=== PATIENT | female | born 1990 | race Two or more races ===

== ENCOUNTER 2019-07-11 09:42 | Inpatient (IN) | payer OTHER ==
[~2019-07-11] VITALS: Ht 162.6 cm; Wt 72.6 kg
[2019-07-11] MEDS ORDERED: PRENATAL CAPLE1 EAC1 PO (10:17)
[2019-07-13] MEDS ORDERED: COLACE100 MG PO (13:14)
[2019-07-13] MEDS ORDERED: SIMETHICONE125 M1 PO (13:15)
== END 2019-07-13 13:14 | disposition home or self-care (01) | DRG 807 ==
LOC: LDR 09:42 → SURG-SUITE 14:38
PROVIDERS: ADMIT Specialist; ATTEND Specialist
PROC: 10E0XZZ Delivery of Products of Conception, External Approach (ICD-10-PCS; principal; 2019-07-11)
PROC: 0W8NXZZ Division of Female Perineum, External Approach (ICD-10-PCS; 2019-07-11)
PROC: 4A1HXCZ Monitoring of Products of Conception, Cardiac Rate, External Approach (ICD-10-PCS; 2019-07-11)
DX: O80 Encounter for full-term uncomplicated delivery (principal); Z37.0 Single live birth; Z3A.38 38 weeks gestation of pregnancy

== ENCOUNTER 2023-08-17 12:45 | Inpatient (IN) | payer OTHER ==
[~2023-08-17] VITALS: Ht 162.6 cm; Wt 73.0 kg
[~2023-08-17 12:45] MED LIST: COLACE100 MG PO; PRENATAL CAPLE1 EAC1 PO; SIMETHICONE125 M1 PO
[2023-08-27 08:36] LABS: HEMATOCRIT 38.3 % (36.0-45.00); HEMOGLOBIN 13.1 g/dL (12.0-15.00); MEAN CELL VOLUME 89.2 fL (80.00-100.00); MEAN CORPUSCULAR HEMOGLOBIN 30.4 pg (27.00-32.0); MEAN CORPUSCULAR HGB CONC 34.1 g/dl (32.0-36.0); PLATELET COUNT 174 K/uL (150-450); RED CELL DISTRIBUTION WIDTH 19.4 % (11.5-14.5)
[2023-08-27 08:57] LABS: INR < 0.93; PARTIAL THROMBOPLASTIN TIME 27.9 SECONDS (22.0-34.0); PROTHROMBIN TIME 9.5 SECONDS (9.0-11.5)
[2023-08-27 09:04] LABS: URINE APPEARANCE Clear; URINE BILIRRUBIN Negative (NEGATIVE); URINE BLOOD Negative; URINE COLOR Yellow; URINE GLUCOSE Negative (NEGATIVE); URINE LEUKOCYTE Negative; URINE NITRATE Negative; URINE PROTEIN Trace (NEGATIVE)
[2023-08-27 09:07] LABS: URINE BACTERIA 581.9 uL (0.0-1933); URINE WBC 4.6 uL (0.0-23.2)
[2023-08-27 09:11] LABS: ALBUMIN 3.1 gm/dL (3.4-5.0); BILIRUBIN TOTAL 0.45 mg/dL (0.3-1.2); CALCIUM 9.2 mg/dL (8.5-10.1); CREATININE SERUM 0.46 mg/dL (0.55-1.02); GFR 155.5; GLOBULINA 3.7 G/DL (2.4-3.5); POTASSIUM 3.86 mEq/L (3.5-5.1); TOTAL PROTEIN 6.8 gm/dL (6.4-8.2)
[2023-08-27] MEDS ORDERED: OXYTOCIN 500 ML IV SCH (09:15)
[2023-08-27 09:31] LABS: URINE RBC 1.6 uL (0.0-20.8)
[2023-08-27] MEDS ORDERED: ERYTHROMYCIN BASE 1 GM TUBE OP ONE (13:00)
[2023-08-27] MEDS ORDERED: LIDOCAINE HCL 1% 10ML VIAL IJ ONE (13:00)
[2023-08-27] MEDS ORDERED: CHLORHEXIDINE GLUCONATE 120 ML BOTTLE TOP ONE (13:00)
[2023-08-27] MEDS ORDERED: OXYTOCIN 1,000 ML IV SCH (13:00)
[2023-08-27 13:44] LABS: ABG PH 7.322 (7.35-7.45); ABG PO2 35.5 mmHg (80-100); ABG pCO2 40.1 mmHg (35-45); SaO2 61.4 %
[2023-08-27 13:45] LABS: BASE EXCESS -5.4 mmol/l; BICARBONATE 20.3 mmol/l (23-25); Tco2 21.5 mmol/l; o2 21 %
[2023-08-27] MEDS ORDERED: IBUprofen 600 MG TABLET PO SCH (18:00)
== END 2023-08-29 14:55 | disposition home or self-care (01) | DRG 807 ==
LOC: OB/GYN 08-27 07:24 → LDR 08-27 07:24 → OB/GYN 08-27 13:00
PROVIDERS: ADMIT Specialist; ATTEND Specialist
PROC: 10E0XZZ Delivery of Products of Conception, External Approach (ICD-10-PCS; principal; 2023-08-27)
PROC: 0W8NXZZ Division of Female Perineum, External Approach (ICD-10-PCS; 2023-08-27)
PROC: 4A1HXCZ Monitoring of Products of Conception, Cardiac Rate, External Approach (ICD-10-PCS; 2023-08-27)
DX: O80 Encounter for full-term uncomplicated delivery (principal); Z37.0 Single live birth; Z3A.39 39 weeks gestation of pregnancy; Z20.822 Contact with and (suspected) exposure to COVID-19

== ENCOUNTER 2024-05-07 21:12 | Day surgery (SDC) | payer OTHER ==
[~2024-05-07] VITALS: Ht 162.6 cm; Wt 63.5 kg
--- NOTE | 2024-05-07 20:39 | NUR ---
SE RECIBE PTE ALERTA Y ORIENTADA LA CUAL REFIERE VENIR POR REFERIDO DE LA RAMONA. MAGEN HEATH POR SANGRADO VAGINAL Y DOLOR PELVICO DESDE EL SABADO. PTE CON DOCUMENTACION PARA ADMISION DIRECTA A LA MANO. SE MIDEN S/V A PTE Y SE UBICA.
[2024-05-07] MEDS ORDERED: RINGERS SOLUTION,LACTATED 1,000 ML IV ONE (21:15)
[2024-05-07 21:48] LABS: HEMATOCRIT 32.9 % (36.0-45.00); HEMOGLOBIN 11.1 g/dL (12.0-15.00); MEAN CELL VOLUME 88.5 fL (80.00-100.00); MEAN CORPUSCULAR HEMOGLOBIN 29.8 pg (27.00-32.0); MEAN CORPUSCULAR HGB CONC 33.7 g/dl (32.0-36.0); PLATELET COUNT 279 K/uL (150-450); RED BLOOD COUNT 3.71 M/uL (4.00-6.00); RED CELL DISTRIBUTION WIDTH 13.8 % (11.5-14.5)
--- NOTE | 2024-05-07 22:00 | NUR ---
SE EJECUTAN ORDENES MEDICAS EN [facility] TOTALIDAD
[2024-05-07 22:10] LABS: ALBUMIN 3.7 gm/dL (3.4-5.0); BILIRUBIN TOTAL 0.62 mg/dL (0.3-1.2); CALCIUM 8.6 mg/dL (8.5-10.1); CREATININE SERUM 0.44 mg/dL (0.55-1.02); GFR 163.68; GLOBULINA 3.9 G/DL (2.4-3.5); POTASSIUM 4.12 mEq/L (3.5-5.1); TOTAL PROTEIN 7.6 gm/dL (6.4-8.2)
[2024-05-07 23:24] LABS: PH,URINE 5.5 (5.0-8.0); URINE APPEARANCE Clear; URINE BILIRRUBIN Negative (NEGATIVE); URINE BLOOD Negative; URINE COLOR Yellow; URINE GLUCOSE Negative (NEGATIVE); URINE KETONE Trace (NEGATIVE); URINE LEUKOCYTE Negative; URINE NITRATE Negative; URINE PROTEIN Negative (NEGATIVE); URINE UROBILINOGEN 0.2 E.U./dl
[2024-05-07 23:29] LABS: URINE BACTERIA 1113.7 uL (0.0-1933); URINE EPITHELIAL CELLS 12.6 uL (0.0-38.8); URINE RBC 7.9 uL (0.0-20.8); URINE WBC 4.9 uL (0.0-23.2)
[2024-05-07 23:34] LABS: INR 1.02; PARTIAL THROMBOPLASTIN TIME 29.4 SECONDS (22.0-34.0); PROTHROMBIN TIME 11.1 SECONDS (9.0-11.5)
[2024-05-07 23:35] VITALS: BP 117/73
[2024-05-08 03:45] VITALS: BP 101/68
[2024-05-08 07:00] VITALS: BP 110/78
[2024-05-08] MEDS ORDERED: CEFAZOLIN SODIUM 1,000 MG VIAL ONE (12:31)
[2024-05-08] MEDS ORDERED: BUPIVACAINE HCL/MPF 0.5% 30ML VIAL ONE (12:31)
[2024-05-08] MEDS ORDERED: POVIDONE-IODINE 118 ML BOTT TOP ONE (12:31)
[2024-05-08] MEDS ORDERED: LIDOCAINE HCL 1%/EPINEPHRINE 20ML VIAL IJ ONE (12:32)
[2024-05-08 12:53] LABS: HEMATOCRIT 38.9 % (36.0-45.00); MEAN CELL VOLUME 87.8 fL (80.00-100.00); MEAN CORPUSCULAR HEMOGLOBIN 29.3 pg (27.00-32.0); MEAN CORPUSCULAR HGB CONC 33.4 g/dl (32.0-36.0); RED BLOOD COUNT 4.43 M/uL (4.00-6.00); RED CELL DISTRIBUTION WIDTH 13.9 % (11.5-14.5)
[2024-05-08 12:58] LABS: PLATELET COUNT 267 K/uL (150-450)
[2024-05-08] MEDS ORDERED: IBU800 MG PO (14:40)
[2024-05-08] MEDS ORDERED: SURFAK240 M1 PO (14:40)
[2024-05-08] MEDS ORDERED: KETOROLAC TROMETHAMINE 60 MG VIAL IM NR (15:00)
[2024-05-08] MEDS ORDERED: MORPHINE SULFATE 4 MG/ML VIAL IV ONE (15:20)
[2024-05-08] MEDS ORDERED: KETOROLAC TROMETHAMINE 60 MG VIAL IM ONE (16:33)
[2024-05-08] MEDS ORDERED: MORPHINE SULFATE 4 MG/ML CARTRIDGE IV SCH (17:00)
[2024-05-08] MEDS ORDERED: IBUprofen 800 MG TABLET PO NR (19:00)
[2024-05-08 23:11] VITALS: BP 113/74; O2SAT 100
== END 2024-05-08 20:36 | disposition home or self-care (01) ==
LOC: OBS/DEL 21:12 → ER 21:12 → CIR.AMB 21:12 → ER 22:05 → OB/GYN 22:05 → EDSTATUS 05-08 15:30 → CIR.AMB 05-08 20:36 → OBS/DEL 05-08 20:36 → OB/GYN 05-08 20:36
PROVIDERS: General Practice; Specialist; ATTEND Emergency Medicine
DX: O00.101 Right tubal pregnancy without intrauterine pregnancy (principal); N83.12 Corpus luteum cyst of left ovary